=== PATIENT | female | born 1985 | race Hispanic/Latino ===

== ENCOUNTER 2016-11-27 06:16 | Day surgery (SDC) | payer MEDICAID ==
[~2016-11-27 06:16] MED LIST: NACL 0.9% 1000 ML 1,000 ML IV SCH; PEPCID PO NR; VERSED IV NR
[2016-11-27] MEDS ORDERED: NACL BACTERIOSTATIC INFILTRATI ONE (06:23)
[2016-11-27 07:33] LABS: Basophils % (Auto) 0.5 % (0.0-1.8); Eosinophils % (Auto) 0.4 % (0.0-4.3); Hemoglobin 14.2 gm/dl (10.1-14.3); Mean Corpuscular HGB Conc 34 % (30-34); Mean Corpuscular Hemoglobin 33 pg (28-32); Mean Corpuscular Volume 97 fl (79-97); Platelet Count 175 K/mm3 (140-440); Red Blood Count 4.33 M/mm3 (3.65-5.03); Red Cell Distribution Width 13.4 % (13.2-15.2); White Blood Count 11.3 K/mm3 (4.5-11.0)
[2016-11-27] MEDS ORDERED: SUBLIMAZE ONE (07:37)
[2016-11-27] MEDS ORDERED: DIPRIVAN 10 MG/ML IV ONE (07:37)
--- NOTE | 2016-11-27 07:37 | Anesthesia Day of Surgery ---
Anesthesia Day of Surgery - Day of Surgery Patient Examined: Yes Patient H&P Reviewed: Yes Patient is NPO: Yes
--- NOTE | 2016-11-27 07:37 | Anesthesia Consultation ---
Anesthesia Consult and Med Hx Date of service: 11/27/16 - Airway Anesthetic Teeth Evaluation: Good ROM Head & Neck: Adequate Mental/Hyoid Distance: Adequate Mallampati Class: Class II Intubation Access Assessment: Probably Good - Pulmonary Exam CTA: Yes - Cardiac Exam Cardiac Exam: RRR - Pre-Operative Health Status ASA Pre-Surgery Classification: ASA2 Proposed Anesthetic Plan: General - Pulmonary Hx Smoking: Yes (1PPD X 12 YRS) Hx Sleep Apnea: No (BUTCH PRE SCREEN NEGATIVE) - Cardiovascular System Hx Hypertension: No - Central Nervous System Hx Back Pain: Yes (2 slipped disk) - Other Systems Hx Substance Use: Yes (MARIJUANA 4-5 X PER WEEK) Hx Cancer: No - Additional Comments 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
[2016-11-27 07:39] LABS: INR 1.05 (0.87-1.13)
[2016-11-27 07:40] LABS: Partial Thromboplastin Time 33.2 Sec. (24.2-36.6)
[2016-11-27] MEDS ORDERED: ANCEF/STERILE WATER 2 GM/20 ML 2 GM/20 ML SYRINGE IV ONE (08:45)
[2016-11-27] MEDS ORDERED: WATER FOR IRRIG STERILE IR ONE (08:50)
[2016-11-27] MEDS ORDERED: OMNIPAQUE 300 MG/50 ML (CATH LAB) IV ONE (08:50)
[2016-11-27] MEDS ORDERED: XYLOCAINE MPF 2% ONE (08:54)
[2016-11-27] MEDS ORDERED: DECADRON ONE (09:07)
[2016-11-27] MEDS ORDERED: ZOFRAN ONE ×2 (09:08→09:36)
[2016-11-27] MEDS ORDERED: ePHEDrine SULFATE ONE (09:10)
[2016-11-27] MEDS ORDERED: ANCEF/STERILE WATER 2 GM/20 ML IV NR (09:30)
--- NOTE | 2016-11-27 09:38 | Post Operative Note ---
Pre-op diagnosis: pelvic pain Post-op diagnosis: same Findings: unremarlkable Procedure: cysto rpgs Anesthesia: GETA Surgeon: LAUREN SMITH Estimated blood loss: none Pathology: none Condition: stable Disposition: PACU
--- NOTE | 2016-11-27 09:39 | Discharge Summary ---
Short Stay Discharge Plan Activity: no restrictions, other Weight Bearing Status: Full Weight Bearing Diet: regular Special Instructions: other (inc fluids ) Follow up with: ANTOINETTE LOMELI MD [Primary Care Provider] - 7 Days LAUREN SMITH MD [Staff Physician] - 6 Weeks
[2016-11-27 10:31] VITALS: BP 108/66
--- NOTE | 2016-11-27 10:33 | Post Anesthesia Evaluation ---
- Post Anesthesia Evaluation Patient Participated: Yes Airway Patent: Yes Stable Respiratory Function: Yes Nausea/Vomiting: No Temp > 96.8F: Yes Pain Manageable: Yes Adequeate Hydration: Yes Anesthesia Complications: No Block Receding Appropriately: Not Applicable Patient on Ventilator: No
--- NOTE | 2016-11-27 10:49 | Operative Report ---
PREOPERATIVE DIAGNOSIS: Pelvic pain. POSTOPERATIVE DIAGNOSIS: Pelvic pain. PROCEDURE PERFORMED: Cystoscopy, retrograde. SURGEON: Rich Paulino MD ANESTHESIA: General. FINDINGS: This is a woman with chronic pain and she had a previous hysterectomy. She is 31 years of age. She now presents for cystoscopy. DESCRIPTION OF PROCEDURE: The patient brought to the OR and placed on the operating table. Following induction of anesthesia, placed in lithotomy position, prepped and draped in usual sterile fashion. Cystourethroscopy was normal. She has no irregularities in the bladder. Urethra was normal. Retrograde showed good filling, good drainage bilaterally. The patient tolerated the procedure well. No significant complications. There were no lesions that needed to be biopsied. No stones noted, no persistent filling defects. Family was notified. The patient tolerated the procedure well. Bimanual exam showed post-hysterectomy. No palpable masses, brought to recovery in stable condition. JOB# [id number] CATHERINE/CALIXTO
[2016-11-27] MEDS ORDERED: ZOFRAN IV PRN (11:00)
[2016-11-27] MEDS ORDERED: PERCOCET 5/325 PO PRN (11:30)
[2016-11-27] MEDS ORDERED: DILAUDID IV PRN (11:30)
--- NOTE | 2016-11-29 10:19 | Fluoroscopy Report ---
RETROGRADE PYELOGRAM: History: Hematuria. There is adequate filling of the ureters and intrarenal collecting systems with no filling defects or anatomic abnormalities identified.
== END 2016-11-27 11:00 | disposition home or self-care (01) ==
LOC: OR 06:16 → SUATTDRO 06:16 → OR 11:00
PROVIDERS: ATTEND Internal Medicine
DX: R10.2 Pelvic and perineal pain (principal); G89.29 Other chronic pain; F17.210 Nicotine dependence, cigarettes, uncomplicated; F12.90 Cannabis use, unspecified, uncomplicated; Z90.710 Acquired absence of both cervix and uterus
CPT/HCPCS: 36415; 52005; 74420; 85025; 85610; 85730; A4217; C1758; J0690; J1100; J2250; J2405; J2704; J3010; J7030; Q9967

== ENCOUNTER 2017-10-16 15:04 | Emergency (ER) | payer MEDICAID ==
[2017-10-16 16:10] LABS: Hemoglobin 13.6 gm/dl (10.1-14.3); Mean Corpuscular HGB Conc 35 % (30-34); Mean Corpuscular Hemoglobin 34 pg (28-32); Mean Corpuscular Volume 97 fl (79-97); Platelet Count 211 K/mm3 (140-440); Red Blood Count 4.03 M/mm3 (3.65-5.03); Red Cell Distribution Width 12.9 % (13.2-15.2)
[2017-10-16] MEDS ORDERED: NACL 0.9% 1000 ML 1,000 ML IV ONE ×2 (16:10→19:12)
[2017-10-16] MEDS ORDERED: PEPCID IV ONE ×2 (16:10→16:45)
[2017-10-16] MEDS ORDERED: ZOFRAN IV ONE ×2 (16:10→19:12)
--- NOTE | 2017-10-16 16:10 | Event Note ---
Date: 10/16/17 Patient presents to the ER complaining of headache, fatigue, bright red blood per rectum, abdominal pain, generalized malaise, fever to 104. Does not have a private technical information specialist. Hemodynamically stable at this time, protecting her airway. Check labs, start IV fluids, give pain medication, nausea medication, will require additional diagnostics as per primary ER attending. Patient is not suitable for my care/fast track, and should be placed in the main emergency room at the earliest available time. Vital Signs (72 hours) 10/16/17 15:10 Temperature 98.3 F Pulse Rate 91 H Respiratory 16 Rate Blood Pressure 100/60 O2 Sat by Pulse 100 Oximetry
[2017-10-16 16:17] LABS: INR 0.83 (0.87-1.13)
[2017-10-16 16:31] LABS: BUN/Creatinine Ratio 24; Blood Urea Nitrogen 12 mg/dL (7-17); Hemolysis Index 3
[2017-10-16] MEDS ORDERED: BENADRYL IV ONE (16:44)
--- NOTE | 2017-10-16 16:59 | Emergency Department Report ---
ED Abdominal Pain HPI - General Chief Complaint: Abdominal Pain Stated Complaint: FLU LIKE SYMPTOMS Time Seen by Provider: 10/16/17 16:42 Source: patient Mode of arrival: Ambulatory Limitations: No Limitations - History of Present Illness Initial Comments: This is a 32-year-old female who has a past medical history significant for GERD , migraines, ovarian cysts with a hysterectomy, previous Escherichia coli infections treated at [facility], and factor V blood disorder, who presents to the emergency room with a one-day history of fever, nausea, vomiting 3, blood in the stool this morning, and fatigue. Patient states that she was in her usual state of health yesterday and then began to have abdominal pain. She states that her nausea is persistent and has vomited 3 times today. She also reports that she feels like something is on her chest. She admits to some shortness of breath from time to time. She also states that there is pain in her back. She reports having blood in her stool and states that this is different from her previous Escherichia coli infections. She does report that at home she had a fever between 103-104. She states that in the past when she has had this constellation of symptoms, she has required admission and IV antibiotics. He had the emergency room she does not have a fever at this time. She admits to smoking one pack per day for the last 6 years she denies any alcohol use, and she admits to marijuana use. MD Complaint: abdominal pain -: Gradual, days(s) (1) Location: diffuse Radiation: back Migration to: no migration Severity: moderate Quality: cramping Consistency: intermittent Improves With: nothing Worsens With: nothing Associated Symptoms: nausea, vomiting. denies: diarrhea - Related Data Home Medications Medication Instructions Recorded Confirmed Last Taken Aspirin/Acetaminophen/Caffeine 1 each PO PRN PRN 11/16/16 11/27/16 1 Month Ago [Goodrosanna's Ex-Str Powder Packet] ~10/27/16 Butalb/Acetaminophen/Caffeine 1 cap PO Q6HR PRN 11/16/16 11/27/16 11/25/16 [Fioricet 50-300-40 mg CAP] HYDROcodone/APAP 5-325 [[place] 1 each PO Q6HR PRN 11/16/16 11/27/16 11/26/16 5/325] Allergies Allergy/AdvReac Type Severity Reaction Status Date / Time No Known Allergies Allergy Verified 11/16/16 14:55 ED Review of Systems ROS: Stated complaint: FLU LIKE SYMPTOMS Other details as noted in HPI Comment: All other systems reviewed and negative Constitutional: see HPI Eyes: as per HPI ENT: as per HPI Respiratory: see HPI Cardiovascular: as per HPI Endocrine: see HPI Gastrointestinal: as per HPI Genitourinary: as per HPI Musculoskeletal: as per HPI Skin: as per HPI Neurological: as per HPI Psychiatric: as per HPI Hematological/Lymphatic: as per HPI ED Past Medical Hx - Past Medical History Hx Hypertension: No Hx GERD: Yes Hx Headaches / Migraines: Yes (MIGRAINES) Additional medical history: OVARIAN CYST - Surgical History Additional Surgical History: HYSTERCTOMY - Social History Smoking Status: Current Every Day Smoker Substance Use Type: Marijuana - Medications Home Medications: Home Medications Medication Instructions Recorded Confirmed Last Taken Type Aspirin/Acetaminophen/Caffeine 1 each PO PRN PRN 11/16/16 11/27/16 1 Month Ago History [[place]'s Ex-Str Powder Packet] ~10/27/16 Butalb/Acetaminophen/Caffeine 1 cap PO Q6HR PRN 11/16/16 11/27/16 11/25/16 History [Fioricet 50-300-40 mg CAP] HYDROcodone/APAP 5-325 [[place] 1 each PO Q6HR PRN 11/16/16 11/27/16 11/26/16 History 5/325] ED Physical Exam - General Limitations: No Limitations General appearance: alert, anxious - Head Head exam: Present: atraumatic - Eye Eye exam: Present: normal appearance - ENT ENT exam: Present: normal exam - Neck Neck exam: Present: normal inspection - Respiratory Respiratory exam: Present: normal lung sounds bilaterally - Cardiovascular Cardiovascular Exam: Present: regular rate, normal rhythm, normal heart sounds - GI/Abdominal GI/Abdominal exam: Present: soft, normal bowel sounds - Extremities Exam Extremities exam: Present: normal inspection, full ROM, normal capillary refill - Back Exam Back exam: Present: normal inspection, full ROM - Neurological Exam Neurological exam: Present: alert, oriented X3, CN II-XII intact - Psychiatric Psychiatric exam: Present: normal affect - Skin Skin exam: Present: warm, dry, normal color ED Course Vital Signs 10/16/17 15:10 Temperature 98.3 F Pulse Rate 91 H Respiratory 16 Rate Blood Pressure 100/60 O2 Sat by Pulse 100 Oximetry ED Medical Decision Making - Lab Data Result diagrams: 10/16/17 15:34 10/16/17 15:34 Critical care attestation.: If time is entered above; I have spent that time in minutes in the direct care of this critically ill patient, excluding procedure time. 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
[2017-10-16] MEDS ORDERED: PHENERGAN PO ONE (17:00)
[2017-10-16] MEDS ORDERED: BENTYL PO ONE (17:00)
[2017-10-16 17:07] LABS: Alanine Aminotransferase 17 units/L (7-56); Albumin 4.2 g/dL (3.9-5)
[2017-10-16 17:09] LABS: Bilirubin,Direct < 0.2 mg/dL (0-0.2)
[2017-10-16 17:18] LABS: Lipase 23 units/L (13-60)
[2017-10-16 17:50] LABS: Anisocytosis 1+; Basophils % (Manual) 0 % (0.0-1.8); Platelet Estimate Consistent w Auto; Total Cells Counted 100
--- NOTE | 2017-10-16 18:47 | Cat Scan Report ---
FINAL REPORT EXAM: CT A/P w Contrast CLINICAL INDICATIONS: ABD PAIN, N/V, BLOOD IN STOOL FINDINGS: Contrast enhanced CT of the abdomen and pelvis was performed. The heart is normal in size. There is a left lower lobe bulla , 1.1 cm. The contrast-enhanced liver, spleen, adrenal glands, pancreas are unremarkable. The gallbladder is distended but is otherwise within normal limits. The abdominal aorta is normal in size. There is no renal or ureteral calculus. There is no small or large bowel obstruction. no rectal abnormality is seen. Pelvis: There is a normal appendix. There has been a hysterectomy. There is no evidence of diverticulitis. The urinary bladder is within normal limits. There is no free air. IMPRESSION: ABDOMEN: NO RENAL OR URETERAL CALCULUS NO BOWEL OBSTRUCTION PELVIS: NORMAL APPENDIX HYSTERECTOMY
[2017-10-16 18:54] VITALS: BP 102/53
[2017-10-16] MEDS ORDERED: TORADOL IV ONE (19:12)
[2017-10-16] MEDS ORDERED: MORPHINE IV ONE (19:12)
[2017-10-16 21:04] LABS: Bilirubin,Urine NEG (Negative); Blood,Urine NEG (Negative); Color,Urine Yellow (Yellow); Mucus,Urine FEW /HPF; Protein,Urine <15 mg/dL mg/dL (Negative); Urobilinogen,Urine < 2.0 mg/dL (<2.0); WBC,Urine < 1.0 /HPF (0.0-6.0)
[2017-10-16 21:09] LABS: Amphetamine Screen,Urine PRESUMPTIVE NEGATIVE; Benzodiazepines Screen,Urine PRESUMPTIVE NEGATIVE; Cocaine Screen,Urine PRESUMPTIVE NEGATIVE; Methadone Screen,Urine PRESUMPTIVE NEGATIVE
[2017-10-16 21:23] LABS: Cannabinoid Screen,Urine PRESUMPTIVE POSITIVE; Opiate Screen,Urine PRESUMPTIVE POSITIVE
== END 2017-10-16 20:58 | disposition left against medical advice (07) ==
LOC: ED 15:04
DX: R10.84 Generalized abdominal pain (principal); K21.9 Gastro-esophageal reflux disease without esophagitis; F17.200 Nicotine dependence, unspecified, uncomplicated; F12.10 Cannabis abuse, uncomplicated; G43.909 Migraine, unspecified, not intractable, without status migrainosus
CPT/HCPCS: 36415; 74177; 80048; 80074; 80307; 81001; 82150; 83690; 84703; 85007; 85025; 85610; 86850; 86900; 86901; 96361; 96374; 96375; 96376; 99284; J1200; J1885; J2270; J2405; J2930; J7030; Q9967